=== PATIENT | male | born 1955 | race Caucasian/White ===

== ENCOUNTER 2024-04-11 12:51 | Emergency (ER) | payer MEDICARE, OTHER, SELFPAY ==
[2024-04-11 12:52] VITALS: BP 107/70; PULSE 89; RESP 18; TEMP 36.3; O2SAT 95
--- NOTE | 2024-04-11 13:23 | CT_ITS ---
STUDY: CT BRAIN WITHOUT CONTRAST REASON FOR EXAM: Male, 69 years old. Head injury. Patient is on anticoagulants. RADIATION DOSAGE (If Supplied By Facility): CTDIvol = ( 44.99 ) mGy, DLP = ( 762.36 ) mGycm TECHNIQUE: Transaxial CT imaging of the brain was performed without administration of intravenous contrast material. Individualized dose optimization techniques were used for this CT. COMPARISON: No relevant priors. FINDINGS: Normal soft tissue structures. Normal calvarium. There is mild cerebral atrophy with widening of the extra-axial spaces and ventricular dilatation. Normal white matter tracts of the cerebral hemispheres. Normal basal ganglia and thalami. Normal brainstem. Normal cerebellum. There is no intracranial hemorrhage. There are no findings of an acute ischemic infarction. Atherosclerotic calcification of the vertebral arteries as well as the cavernous portions of the internal carotid arteries bilaterally. Normal visualized paranasal sinuses. CT/Brain/Head without Contrast IMPRESSION: Chronic involutional changes of the brain. Electronically Signed: Fab Davenport MD at 14:11 EDT ,
--- NOTE | 2024-04-11 13:38 | EX.ED.GENINJ ---
HPI History of Present Illness Chief Complaint: Fall Informant: patient Narrative Narrative: 69-year-old male presenting to the emergency room with a chief complaint of a fall. Patient states he is on an unknown blood thinner but states trust me it is a blood thinner. He states that he was walking out of all these carrying a box when he lost his footing and fell forward. He notes abrasions to the bilateral forearms and struck the right side of his head very recently had skin cancer surgery patient notes no other injuries. Specifically no back or neck pain. No lower extremity pain. No injury to the torso. Patient will be He denies any vomiting or nausea. No loss of consciousness he states he was able to ambulate into the department. PFSH PFSH Allergy/AdvReac Type Severity Reaction Status Date / Time codeine Allergy Mild Nausea/Vom/ Verified 04/11/24 12:56 Diarrhea Social History Smoking Status: Never smoker ROS ROS ED Constitutional Constitutional ED: Denies chills, fever(s) or weight loss Eyes Eyes: Denies change in vision or diplopia ENT ENT ED: Denies ear pain, rhinorrhea or sore throat Cardiovascular Cardiovascular: Denies chest pain, orthopnea, palpitations or racing heartbeat Respiratory/Chest Respiratory/Chest: Denies cough, dyspnea or orthopnea Gastrointestinal Gastrointestinal: Denies abdominal pain, diarrhea, nausea or vomiting Genitourinary Genitourinary ED: Denies dysuria, hematuria or urinary frequency Musculoskeletal Musculoskeletal: Denies arthralgias, back pain, myalgias or neck pain Integumentary Reports Abrasions; Denies abscess or rash Neurologic Neurologic: Reports headache(s); Denies paresthesias or weakness Psychiatric Psychiatric: Denies anxiety, depression, suicidal ideation or suicidal thoughts Endocrine Endocrinology: Denies polydipsia, polyphagia or polyuria Allergic/Immunologic Allergic/Immunologic ED: Denies mouth swelling, tongue swelling or urticaria EXAM Physical Exam Const Vital Signs: 04/11/24 12:52 04/11/24 13:20 Temperature 97.4 F L Temperature Source Temporal Pulse Rate 89 Respiratory Rate 18 Respiratory Effort Normal Non-Labored Respiratory Depth Normal Respiratory Pattern Normal Blood Pressure 107/70 Blood Pressure Mean 82 Pulse Ox 95 Oxygen Delivery Method Room Air Room Air Positive well nourished and well developed General Appearance ED: well developed and NAD HEENT Reports normocephalic and moist mucous membranes HEENT Narrative: There is a small hematoma to the right high parietal region. Eyes PERRL and EOMs intact bilaterally Neck no lymphadenopathy, supple and no JVD Resp normal respiratory effort and clear to auscultation bilaterally Cardio regular rate, regular rhythm and no murmurs GI normal to inspection, nondistended, normoactive bowel sounds and non-tender Palpation: soft Back/Spine no CVA tenderness and normal ROM Extremity full ROM Extremity Narrative: There are superficial abrasions to the bilateral posterior forearms. No obvious deformities. Neurovascular intact. General Extremety ED: Yes deformity; Negative for edema General Extremity: deformity; Negative for edema Neuro oriented x3 and CN's II-XII intact bilaterally Sensorium / Orientation: alert Motor Exam: strength 5/5 throughout Psych mental status grossly normal Mood & Affect: Negative for depressed or tearful Skin no rashes or lesions noted and no wounds MDM MDM MDM Narrative Medical decision making narrative: Differential diagnosis includes intracranial hemorrhage and hematoma skull fracture skin abrasion concussion CT of the brain was obtained which does not demonstrate any intracranial hemorrhage or fracture. Wounds were cleansed and dressed. Patient be discharged home with supportive care following up with primary care as needed return if worsening or concerns History & Record Review Discussion w/independent historian: Patient Radiography Diagnostic Testing: Clinical Impression(s) from Imaging Studies Brain CT 04/11/24 13:23 IMPRESSION: Chronic involutional changes of the brain. Electronically Signed: Fab Davenport MD at 14:11 EDT Reading Location ID and State: [facility] / [place] , Service support , Discharge Plan Triage Chief Complaint: Fall ED Provider: Adrián Guzman Dx/Rx/DC Orders Clinical Impression: Head injury, Anticoagulated, Fall, Hematoma of right parietal scalp, Abrasion forearm Instructions: ED Abrasion, ED Head Injury (Adult) Primary Care Provider: Ochoa Gonsalez Referrals: Ochoa Gonsalez DO [Primary Care Provider] - As Needed Print Language: Wolof Disposition Disposition: Home, Self Care
[2024-04-11 14:31] VITALS: BP 110/77; PULSE 84; RESP 17; TEMP 36.6; O2SAT 98
== END 2024-04-11 14:33 | disposition home or self-care (01) ==
PROVIDERS: Emergency Provider Emergency Medicine; PCP Family Medicine; Visit Provider Emergency Medicine
DX: S00.03XA Contusion of scalp, initial encounter (principal); Z79.01 Long term (current) use of anticoagulants; Y93.01 Activity, walking, marching and hiking; W19.XXXA Unspecified fall, initial encounter; S50.811A Abrasion of right forearm, initial encounter; S50.812A Abrasion of left forearm, initial encounter
CPT/HCPCS: 70450; 99282